=== PATIENT | male | born 1925 | race Caucasian/White ===

== ENCOUNTER 2016-02-24 15:49 | Emergency (ER) | payer OTHER ==
[2016-02-24 16:03] VITALS: TEMP 98.2; BMI 21.6
--- NOTE | 2016-02-24 16:16 | PDOC ---
History of Present Illness - History of Present Illness Initial Comments: 02/24/16 16:43 Patient is an 89 year old male with significant medical hx of pacemaker placement, myasthenia gravis, and HTN who is presenting to the ED today s/p fall with left anterior rib pain that occurred four hours prior to arrival. The patient slipped at home, turned, and fell on his left side. He complains of pleuritic pain that occurs with deep inspiration and left shoulder discomfort when he raises his left arm over his head. Denies hip pain, head trauma, or loss of consciousness. <Claudia Castillo - Last Filed: 02/24/16 17:55> <Taylor Kumar - Last Filed: 02/24/16 18:23> <Andres Colon - Last Filed: 02/28/16 10:09> - General Chief Complaint: Injury Stated Complaint: SOB, CHEST PAIN Time Seen by Provider: 02/24/16 16:11 Past History <Claudia Castillo - Last Filed: 02/24/16 17:55> <Taylor Kumar - Last Filed: 02/24/16 18:23> - Past Medical History Cancer: Yes (multiple myeloma) Cardiac Disorders: Yes (AICD) HTN: Yes - Surgical History Appendectomy: Yes - Immunization History TDAP Vaccination: Yes (2016) - Psycho/Social/Smoking Cessation Hx Suicidal Ideation: No Smoking History: Former smoker Have you smoked in the past 12 months: No If you are a former smoker, when did you quit?: 29 YRS AGO Information on smoking cessation initiated: No Hx Alcohol Use: No Drug/Substance Use Hx: No Substance Use Type: None <Andres Colon - Last Filed: 02/28/16 10:09> - Past Medical History Allergies/Adverse Reactions: Allergies Allergy/AdvReac Type Severity Reaction Status Date / Time escitalopram oxalate AdvReac Intermediate Does not Verified 02/24/16 15:53 [From Lexapro] like the way he feels sertraline AdvReac Intermediate Does not Verified 02/24/16 15:[address] he feels Home Medications: Ambulatory Orders Alprazolam [Alprazolam ER] 0.5 mg PO TID PRN 09/13/15 Metoprolol Tartrate 12.5 mg PO BID 09/13/15 Mycophenolate Mofetil [Cellcept -] 500 mg PO BID 09/13/15 Ezetimibe/Simvastatin [Vytorin 10-20 mg Tablet] 1 tab PO DAILY 02/24/16 Gabapentin 100 mg PO DAILY 02/24/16 Irbesartan 150 mg PO DAILY 02/24/16 Trauma Specific PMHX - Complaint Specific PMHX Arthritis: Yes <Andres Colon - Last Filed: 02/28/16 10:09> Review of Systems - Review of Systems Comments:: 02/24/16 16:44 CONSTITUTIONAL: Absent: fever, chills, diaphoresis, generalized weakness, malaise, loss of appetite HEENT: Absent: rhinorrhea, nasal congestion, throat pain, throat swelling, difficulty swallowing, mouth swelling, ear pain, eye pain, visual changes CARDIOVASCULAR: Present: pleuritic chest pain Absent: syncope, palpitations, irregular heart rate, lightheadedness, peripheral edema RESPIRATORY: Absent: cough, shortness of breath, dyspnea with exertion, orthopnea, wheezing, stridor, hemoptysis GASTROINTESTINAL: Absent: abdominal pain, abdominal distension, nausea, vomiting, diarrhea, constipation, melena, hematochezia GENITOURINARY: Absent: dysuria, frequency, urgency, hesitancy, hematuria, flank pain, genital pain MUSCULOSKELETAL: Present: anterior rib pain, left shoulder pain Absent: myalgia, arthralgia, joint swelling SKIN: Absent: rash, itching, pallor HEMATOLOGIC/IMMUNOLOGIC: Absent: easy bleeding, easy bruising, lymphadenopathy, frequent infections ENDOCRINE: Absent: unexplained weight gain, unexplained weight loss, heat intolerance, cold intolerance NEUROLOGIC: Absent: headache, focal weakness or paresthesia, dizziness, unsteady gait, seizure, mental status changes, bladder or bowel incontinence. PSYCHIATRIC: Absent: anxiety, depression, suicidal or homicidal ideation, hallucinations <Claudia Castillo - Last Filed: 02/24/16 17:55> *Physical Exam - Vital Signs Last Vital Signs Temp Pulse Resp BP Pulse Ox 98.2 F 61 18 143/87 98 02/24/16 15:55 02/24/16 15:55 02/24/16 15:55 02/24/16 15:55 02/24/16 15:55 - Physical Exam Comments: 02/24/16 16:51 GENERAL: Well developed, well nourished. Awake and alert. No acute distress. HEENT: Normocephalic, atraumatic. PERRLA, EOMI. No conjunctival pallor. Sclera are non- icteric. Moist mucous membranes. Oropharynx is clear. NECK: Supple. Full ROM. No JVD. Carotid pulses 2+ and symmetric, without bruits. No thyromegaly. No lymphadenopathy. CARDIOVASCULAR: Regular rate and rhythm. No murmurs, rubs, or gallops. Distal pulses are 2+ and symmetric. PULMONARY: No evidence of respiratory distress. Lungs clear to auscultation bilaterally. No wheezing, rales or rhonchi. ABDOMINAL: Soft. Non-tender. Non-distended. No rebound or guarding. No organomegaly. Normoactive bowel sounds. MUSCULOSKELETAL: Left anterior rib cage tenderness under the left breast. Normal range of motion at all joints. No bony deformities. No CVA tenderness. EXTREMITIES: 3+ pitting edema lower extremities bilaterally. No cyanosis. No clubbing. No calf tenderness. SKIN: Warm and dry. Normal capillary refill. No rashes. No jaundice. NEUROLOGICAL: Alert, awake, appropriate. Cranial nerves 2-12 intact. Normal speech. PSYCHIATRIC: Cooperative. Good eye contact. Appropriate mood and affect. <Claudia Castillo - Last Filed: 02/24/16 17:55> - Vital Signs Last Vital Signs Temp Pulse Resp BP Pulse Ox 98.2 F 61 18 143/87 98 02/24/16 15:55 02/24/16 15:55 02/24/16 15:55 02/24/16 15:55 02/24/16 15:55 <Taylor Kumar - Last Filed: 02/24/16 18:23> - Vital Signs Last Vital Signs Temp Pulse Resp BP Pulse Ox 98.2 F 61 18 143/87 98 02/24/16 15:55 02/24/16 15:55 02/24/16 15:55 02/24/16 15:55 02/24/16 15:55 <Andres Colon - Last Filed: 02/28/16 10:09> ED Treatment Course - RADIOLOGY Radiograph Interpretation: 02/24/16 17:55 Left Shoulder X-Ray Impression: No fracture or dislocation seen. Chest X-Ray Impression: Bilateral increased interstitial lung markings without evidence of acute lung disease. No pneumothorax or pleural effusion is identified. Left Rib X-Ray Impression: Minimally displaced fracture in anterior arch of the left seventh rib. Reported by: Greg Gomez MD <Claudia Castillo - Last Filed: 02/24/16 17:55> - Medications Given in the ED: ED Medications Discontinued Medications Generic Name Dose Route Start Last Admin Trade Name Freq PRN Reason Stop Dose Admin Acetaminophen 650 mg 02/24/16 17:12 02/24/16 16:25 Tylenol - PO 02/24/16 17:13 650 mg ONCE ONE Administration <Taylor Kumar - Last Filed: 02/24/16 18:23> Medical Decision Making - Medical Decision Making 02/24/16 18:22 89-year-old male slipped at home and fell on his left side and came in because of pleuritic chest pain. He fell 3 or 4 hours prior to arrival. He did not hit his head. He denies being on any blood thinners. The patient is alert and conversant. He presents with his and also an aide. They came because he was concerned that his pacemaker might have been broken during the fall -No shoulder injury seen on radiograph. Patient is able to fully extend his left arm -xray shows a minimally displaced seventh left anterior rib central processing tech is reviewing how to use the incentive spirometer properly with the patient at this time <Taylor Kumar - Last Filed: 02/24/16 18:23> - Medical Decision Making 02/28/16 10:09 i did not evaluate this patient. <Andres Colon - Last Filed: 02/28/16 10:09> *DC/Admit/Observation/Transfer - Attestations Scribe Attestion: 02/24/16 16:53 Documentation prepared by Claudia Castillo, acting as bilingual medical assistant for Taylor Kumar MD. <Claudia Castillo - Last Filed: 02/24/16 17:55> <Taylor Kumar - Last Filed: 02/24/16 18:23> <Andres Colon - Last Filed: 02/28/16 10:09> Diagnosis at time of Disposition: Closed rib fracture Qualifiers: Encounter type: initial encounter Rib fracture type: single rib Laterality: left Qualified Code(s): S22.32XA - Fracture of one rib, left side, initial encounter for closed fracture - Discharge Dispostion Disposition: HOME Condition at time of disposition: Stable - Referrals Referrals: Damion Rose MD [Primary Care Provider] - - Patient Instructions Printed Discharge Instructions: DI for Rib Fracture, How to Use an Incentive Spirometer Additional Instructions: Please follow-up with your primary care physician You have a minimally displaced left anterior seventh rib fracture Ease use your incentive spirometer as directed You may take Tylenol for pain Return to the emergency department if you have any increased difficulty breathing
[2016-02-24] MEDS ORDERED: ACETAMINOPHEN 325 MG TABLET (FP) ONE (16:18)
[2016-02-24] MEDS ORDERED: ACETAMINOPHEN 325 MG TABLET (FP) PO ONE (17:12)
[2016-02-24 18:50] VITALS: BP 116/57; PULSE 60
--- NOTE | 2016-02-26 11:11 | EKG ---
Test Reason : Blood Pressure : / mmHG Vent. Rate : 062 BPM Atrial Rate : 163 BPM P-R Int : 000 ms QRS Dur : 122 ms QT Int : 446 ms P-R-T Axes : 000 -16 066 degrees QTc Int : 452 ms POOR DATA QUALITY, INTERPRETATION MAY BE ADVERSELY AFFECTED Atrial-paced rhythm INFERIOR INFARCT , AGE UNDETERMINED ABNORMAL ECG Confirmed by NONA DOUGLASS MD ([id number]) on 02/26/2016 11:11:19 AM Referred By: Confirmed By:NONA DOUGLASS MD
== END 2016-02-24 18:50 | disposition home or self-care (01) ==
LOC: JER 15:49
DX: S22.32XA Fracture of one rib, left side, initial encounter for closed fracture (principal); I10 Essential (primary) hypertension; G70.00 Myasthenia gravis without (acute) exacerbation; Z95.810 Presence of automatic (implantable) cardiac defibrillator; W01.0XXA Fall on same level from slipping, tripping and stumbling without subsequent striking against object, initial encounter; Y93.89 Activity, other specified; Y92.038 Other place in apartment as the place of occurrence of the external cause
CPT/HCPCS: 71010-TC; 71101-TC; 73030-TC-LT; 93005; 93010; 99281-25

== ENCOUNTER 2016-11-28 03:19 | Emergency (ER) | payer OTHER ==
[2016-11-28] MEDS ORDERED: KETOROLAC TROMETHAMINE 60 MG/2 ML VIAL IM ONE (03:51)
--- NOTE | 2016-11-28 03:52 | PDOC ---
History of Present Illness - General History Source: Patient Exam Limitations: No Limitations - History of Present Illness Initial Comments: 11/28/16 03:58 The patient is a 89 year old male with a significant past medical history of pacemaker placement, myasthenia gravis,HLD and HTN who presents of the ED, via EMS, with back pain since earlier today. The patient reports he was crafting with macrame when he had a sudden onset of right sided back pain around 1:30 am today. Patient reports sharp right sided back pain secondary to movement. He states the pain start in his right neck, radiates to his right sided chest, right sided back, all the way down to his right knee. Denies recent heavy lifting or falls. Denies fevers or chills. Denies shortness of breath. Denies nausea, vomiting, or diarrhea. Denies any other symptoms. <Tonny Quezada - Last Filed: 11/28/16 03:58> <Zayda Haji - Last Filed: 11/28/16 20:23> - General Chief Complaint: Chest Pain Stated Complaint: ACUTE BACK PAIN Time Seen by Provider: 11/28/16 03:26 Past History <Tonny Quezada - Last Filed: 11/28/16 03:58> - Past Medical History Cancer: Yes (multiple myeloma) Cardiac Disorders: Yes (AICD, AF) HTN: Yes - Surgical History Appendectomy: Yes - Immunization History TDAP Vaccination: Yes (2016) - Suicide/Smoking/Psychosocial Hx Smoking History: Never smoked Have you smoked in the past 12 months: No If you are a former smoker, when did you quit?: 29 YRS AGO Information on smoking cessation initiated: No Hx Alcohol Use: No Drug/Substance Use Hx: No Substance Use Type: None <Zayda Haji - Last Filed: 11/28/16 20:23> - Past Medical History Allergies/Adverse Reactions: Allergies Allergy/AdvReac Type Severity Reaction Status Date / Time escitalopram oxalate AdvReac Intermediate Does not Verified 11/28/16 03:48 [From Lexapro] like the way he feels sertraline AdvReac Intermediate Does not Verified 11/28/16 03:[address] he feels Home Medications: Ambulatory Orders Metoprolol Tartrate 12.5 mg PO BID 09/13/15 Mycophenolate Mofetil [Cellcept -] 500 mg PO BID 09/13/15 Gabapentin 100 mg PO DAILY 02/24/16 Irbesartan 150 mg PO DAILY 02/24/16 Ibuprofen 400 mg PO Q8H PRN #12 tablet 11/28/16 Methocarbamol [Robaxin -] 500 mg PO BID PRN #10 tablet 11/28/16 Review of Systems - Review of Systems Able to Perform ROS?: Yes Comments:: 11/28/16 03:59 CONSTITUTIONAL: No reported: Fever, Chills, Diaphoresis, Generalized Weakness, Malaise, Loss of Appetite HEENT: No reported: Rhinorrhea, Nasal Congestion, Throat Pain, Throat Swelling, Difficulty Swallowing, Mouth Swelling, Ear Pain, Eye Pain, Visual Changes CARDIOVASCULAR: No reported: Chest Pain, Syncope, Palpitations, Irregular Heart Rate, Lightheadedness, Peripheral Edema RESPIRATORY: No reported: Cough, Shortness of Breath, SOB with Exertion, Orthopnea, Wheezing , Stridor, Hemoptysis GASTROINTESTINAL: No reported: Abdominal pain, Abdominal Distension, Nausea, Vomiting, Diarrhea, Constipation, Melena, Hematochezia GENITOURINARY: No reported: Dysuria, Frequency, Urgency, Hesitancy, Flank Pain, Genital Pain MUSCULOSKELETAL: + radiating back pain No reported: Joint Swelling SKIN: No reported: Rash, Itching, Pallor HEMEATOLOGIC/IMMUNOLOGIC: No reported: Easy Bleeding, Easy Bruising, Lymphadenopathy, Frequent infections ENDOCRINE: No reported: Unexplained Weight Gain, Unexplained Weight Loss, Heat Intolerance , Cold Intolerance NEUROLOGIC: No reported: Headache, Focal Weakness, Paresthesias, Vertigo, Lightheadedness, Unsteady Gait, Seizure, Mental Status Changes, Incontinence PSYCHIATRIC: No reported: Anxiety, Depression All Other Systems: Reviewed and Negative <Tonny Quezada - Last Filed: 11/28/16 03:58> *Physical Exam - Vital Signs Last Vital Signs Temp Pulse Resp BP Pulse Ox 98.7 F 75 20 150/87 100 11/28/16 03:48 11/28/16 03:48 11/28/16 03:48 11/28/16 03:48 11/28/16 03:48 - Physical Exam Comments: 11/28/16 03:59 GENERAL: Well developed, well nourished. Awake and alert. No acute distress. HEENT: Normocephalic, atraumatic. PERRLA, EOMI. No conjunctival pallor. Sclera are non- icteric. Moist mucous membranes. Oropharynx is clear. NECK: Supple. Full ROM. No JVD. Carotid pulses 2+ and symmetric, without bruits. No thyromegaly. No lymphadenopathy. CARDIOVASCULAR: + Pacemaker on left upper chest Regular rate and rhythm. No murmurs, rubs, or gallops. Distal pulses are 2+ and symmetric. PULMONARY: No evidence of respiratory distress. Lungs clear to auscultation bilaterally. No wheezing, rales or rhonchi. ABDOMINAL: Soft. Non-tender. Non-distended. No rebound or guarding. No organomegaly. Normoactive bowel sounds. MUSCULOSKELETAL + Exquisite tenderness on lateral aspect on right side chest around T6,T7,T8. Normal range of motion at all joints. No bony deformities EXTREMITIES: + Valgus deformity of his bilateral toes No cyanosis. No edema. No calf tenderness. SKIN: + Warts on right hand on 2nd, 3rd, and 4th digit. Warm and dry. Normal capillary refill. No rashes. No jaundice. NEUROLOGICAL: Alert, awake, appropriate. Cranial nerves 2-12 intact. No deficits to light touch and temperature in face, upper extremities and lower extremities. No motor deficits in the in face, upper extremities and lower extremities. Normoreflexic in the upper and lower extremities. Normal speech. Toes are down- going bilaterally. Gait is normal without ataxia. PSYCHIATRIC: Cooperative. Good eye contact. Appropriate mood and affect. <Tonny Quezada - Last Filed: 11/28/16 03:58> - Vital Signs Last Vital Signs Temp Pulse Resp BP Pulse Ox 98.7 F 75 20 150/87 100 11/28/16 03:48 11/28/16 03:48 11/28/16 03:48 11/28/16 03:48 11/28/16 03:48 <Zayda Haji - Last Filed: 11/28/16 20:23> ED Treatment Course - LABORATORY CBC & Chemistry Diagram: 11/28/16 06:00 11/28/16 06:00 <Zayda Haji - Last Filed: 11/28/16 20:23> Medical Decision Making - Medical Decision Making 11/28/16 06:27 Pt comes with tenderness to the right side of his chest. He woke up in the middle of the night and told his to call 911 as he was in such pain. Pt states that he has not had this in the past. States that he was at home yesterday. Cannot recall straining himself or injuring self. He has no fever and no SOB. Labs are pending. CXR demonstrates no broken ribs, as far as I can appreciate. Pt has moderate scoliosis which can be the cause of his muscle pains. 11/28/16 20:23 Labs and reevaluation will be signed out to the day team. <Zayda Haji - Last Filed: 11/28/16 20:23> *DC/Admit/Observation/Transfer - Attestations Scribe Attestion: 11/28/16 03:59 Documentation prepared by Tonny Quezada, acting as medical assistant for aZyda Haji MD <Tonny Quezada - Last Filed: 11/28/16 03:58> <Zayda Haji - Last Filed: 11/28/16 20:23> Diagnosis at time of Disposition: Muscle spasm - Discharge Dispostion Disposition: HOME Condition at time of disposition: Improved - Prescriptions Prescriptions: Ibuprofen 400 mg PO Q8H PRN #12 tablet PRN Reason: Back Pain Methocarbamol [Robaxin -] 500 mg PO BID PRN #10 tablet PRN Reason: Back Spasm - Referrals Referrals: Steffen Balderas MD [Staff Physician] - - Patient Instructions Printed Discharge Instructions: DI for Back Spasm Additional Instructions: Take the medications as prescribed. The muscle relaxant may cause drowsiness, so please be careful while you take this medication. Follow up with Dr. Balderas this week.
[2016-11-28] MEDS ORDERED: KETOROLAC TROMETHAMINE 60 MG/2 ML VIAL ONE (03:58)
[2016-11-28 04:23] VITALS: BMI 26.6
[2016-11-28] MEDS ORDERED: METHOCARBAMOL 500 MG TABLET PO ONE (06:12)
[2016-11-28 06:51] LABS: BASOPHIL 0.6 % (0-2.0); EOSINOPHIL 0.6 % (0-4.5); MCH 29.8 pg (25.7-33.7); MCHC 32.8 g/dl (32.0-35.9); MEAN CELL VOLUME 90.8 fl (80-96); MEAN PLT VOLUME 8.5 fl (7.5-11.1); NEUTROPHILS 74.6 % (42.8-82.8); PLATELET COUNT 131 K/MM3 (134-434); RDW 15.5 % (11.9-15.9); WHITE BLOOD COUNT 6.7 K/mm3 (4.0-10.0)
[2016-11-28] MEDS ORDERED: METHOCARBAMOL 500 MG TABLET ONE (06:52)
[2016-11-28 07:18] LABS: ALBUMIN 3.1 g/dl (3.4-5.0); ALK PHOS 62 U/L (45-117); ANION GAP 8 (8-16); BILIRUBIN,TOTAL 0.7 mg/dL (0.2-1.0); CALCIUM 8.3 mg/dL (8.5-10.1); CO2 26 mmol/L (21-32); CREATININE 0.7 mg/dL (0.7-1.3); GLUCOSE,RANDOM 81 mg/dL (74-106); SGOT/AST 27 U/L (15-37); SGPT/ALT 34 U/L (12-78); TOT PROT 6.6 g/dl (6.4-8.2)
--- NOTE | 2016-11-28 08:42 | PDOC ---
*Physical Exam - Vital Signs Last Vital Signs Temp Pulse Resp BP Pulse Ox 98.7 F 75 20 150/87 100 11/28/16 03:48 11/28/16 03:48 11/28/16 03:48 11/28/16 03:48 11/28/16 03:48 <Michael Anaya - Last Filed: 11/28/16 08:45> - Vital Signs Last Vital Signs Temp Pulse Resp BP Pulse Ox 98.7 F 75 20 150/87 100 11/28/16 03:48 11/28/16 03:48 11/28/16 03:48 11/28/16 03:48 11/28/16 03:48 <Michael Leo - Last Filed: 11/28/16 08:46> ED Treatment Course - LABORATORY CBC & Chemistry Diagram: 11/28/16 06:00 11/28/16 06:00 - ADDITIONAL ORDERS Additional order review: Laboratory Results 11/28/16 06:00 Sodium 138 Potassium 3.9 Chloride 104 Carbon Dioxide 26 Anion Gap 8 BUN 14 Creatinine 0.7 D Creat Clearance w eGFR > 60 Random Glucose 81 D Calcium 8.3 L Total Bilirubin 0.7 AST 27 D ALT 34 D Alkaline Phosphatase 62 D B-Natriuretic Peptide 1422.73 H Total Protein 6.6 Albumin 3.1 L 11/28/16 06:00 RBC 4.08 MCV 90.8 MCHC 32.8 RDW 15.5 MPV 8.5 Neutrophils % 74.6 Lymphocytes % 14.5 D Monocytes % 9.7 Eosinophils % 0.6 Basophils % 0.6 - Medications Given in the ED: ED Medications Discontinued Medications Generic Name Dose Route Start Last Admin Trade Name Gabriela PRN Reason Stop Dose Admin Ketorolac Tromethamine 60 mg 11/28/16 03:51 11/28/16 04:05 Toradol Injection - IM 11/28/16 03:52 60 mg ONCE ONE Administration Methocarbamol 1,000 mg 11/28/16 06:12 11/28/16 06:53 Robaxin - PO 11/28/16 06:13 1,000 mg ONCE ONE Administration Oxycodone/Acetaminophen 2 combo 11/28/16 03:51 11/28/16 04:04 Percocet 5/325 - PO 11/28/16 03:52 2 combo ONCE ONE Administration <Michael Anaya - Last Filed: 11/28/16 08:45> - LABORATORY CBC & Chemistry Diagram: 11/28/16 06:00 11/28/16 06:00 - ADDITIONAL ORDERS Additional order review: Laboratory Results 11/28/16 06:00 Sodium 138 Potassium 3.9 Chloride 104 Carbon Dioxide 26 Anion Gap 8 BUN 14 Creatinine 0.7 D Creat Clearance w eGFR > 60 Random Glucose 81 D Calcium 8.3 L Total Bilirubin 0.7 AST 27 D ALT 34 D Alkaline Phosphatase 62 D B-Natriuretic Peptide 1422.73 H Total Protein 6.6 Albumin 3.1 L 11/28/16 06:00 RBC 4.08 MCV 90.8 MCHC 32.8 RDW 15.5 MPV 8.5 Neutrophils % 74.6 Lymphocytes % 14.5 D Monocytes % 9.7 Eosinophils % 0.6 Basophils % 0.6 - Medications Given in the ED: ED Medications Discontinued Medications Generic Name Dose Route Start Last Admin Trade Name Freq PRN Reason Stop Dose Admin Ketorolac Tromethamine 60 mg 11/28/16 03:51 11/28/16 04:05 Toradol Injection - IM 11/28/16 03:52 60 mg ONCE ONE Administration Methocarbamol 1,000 mg 11/28/16 06:12 11/28/16 06:53 Robaxin - PO 11/28/16 06:13 1,000 mg ONCE ONE Administration Oxycodone/Acetaminophen 2 combo 11/28/16 03:51 11/28/16 04:04 Percocet 5/325 - PO 11/28/16 03:52 2 combo ONCE ONE Administration - Consult/PCP Time Called: 08:10 Case discussed with personal care physician: Vicente Lofton <Michael Leo - Last Filed: 11/28/16 08:46> Medical Decision Making - Medical Decision Making 11/28/16 08:37 Sign-out received from outgoing Emergency Physician Dr. Haji Pt interviewed and examined Ancillary studies reviewed Case discussed in detail with oncoming Emergency Physician including history, physical exam and ancillary studies. Vital Signs Temp Pulse Resp BP Pulse Ox 98.7 F 75 20 150/87 100 11/28/16 03:48 11/28/16 03:48 11/28/16 03:48 11/28/16 03:48 11/28/16 03:48 89 year old male c/ cardiac history and pacemaker presents with back pain. After talking with the patient and examining the patient myself, the patient reports pain worsened with movements and back movements. Palpation of the right mid back (NOT CVA tenderness) reproduces pain. The patient reported that during the night, he was in terrible pain and felt like muscle spasm. Once given the muscle relaxant and NSAIDS, pain improved drastically. The patient denies SOB or diaphoresis. He is now ambulatory and in complete relief and would like to go home. His ECG here shows atrial paced rhythm with Q wave III, no std/larry, QTC 476 msec , unchanged from prior. Labs reviewed. Though BNP elevated, I do NOT suspect clinically that he has CHF at this time. I had discussed the case with Dr. Lofton and agrees with my plan of discharging patient with follow up with Dr. 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 This is unlikely to be ACS. The patient feels comfortable and would like to go home. I discussed the physical exam findings, ancillary test results and final diagnoses with the patient. I answered all of the patient's questions. The patient was satisfied with the care received and felt comfortable with the discharge plan and treatment plan. The patient will call their primary care physician within 24 hours to arrange follow-up and will return to the Emergency Department with any new, persistant or worsening symptoms. <Michael Anaya - Last Filed: 11/28/16 08:45> *DC/Admit/Observation/Transfer - Discharge Dispostion Admit: No <Michael Anaya - Last Filed: 11/28/16 08:45> <Michael Leo - Last Filed: 11/28/16 08:46> Diagnosis at time of Disposition: Muscle spasm - Discharge Dispostion Disposition: HOME Condition at time of disposition: Improved - Prescriptions Prescriptions: Ibuprofen 400 mg PO Q8H PRN #12 tablet PRN Reason: Back Pain Methocarbamol [Robaxin -] 500 mg PO BID PRN #10 tablet PRN Reason: Back Spasm - Referrals Referrals: Steffen Balderas MD [Staff Physician] - - Patient Instructions Printed Discharge Instructions: DI for Back Spasm Additional Instructions: Take the medications as prescribed. The muscle relaxant may cause drowsiness, so please be careful while you take this medication. Follow up with Dr. Balderas this week.
[2016-11-28 10:13] VITALS: BP 142/84; PULSE 72; TEMP 97.8
--- NOTE | 2016-11-28 11:00 | EKG ---
Test Reason : Blood Pressure : / mmHG Vent. Rate : 065 BPM Atrial Rate : 065 BPM P-R Int : 246 ms QRS Dur : 132 ms QT Int : 458 ms P-R-T Axes : -08 011 025 degrees QTc Int : 476 ms Atrial-paced rhythm with prolonged AV conduction NON-SPECIFIC INTRA-VENTRICULAR CONDUCTION BLOCK INFERIOR INFARCT (CITED ON OR BEFORE 13-SEP-2015) POSSIBLE ANTEROLATERAL INFARCT , AGE UNDETERMINED ABNORMAL ECG WHEN COMPARED WITH ECG OF 24-FEB-2016 15:57, NONSPECIFIC T WAVE ABNORMALITY NOW EVIDENT IN INFERIOR LEADS Confirmed by TR HERNANDEZ MD ([id number]) on 11/28/2016 11:00:38 AM Referred By: Confirmed By:TR HERNANDEZ MD
[2016-11-28 11:58] LABS: CPK 52 IU/L (39-308); TROPONIN I < 0.02 ng/ml (0.00-0.05)
== END 2016-11-28 09:30 | disposition home or self-care (01) ==
LOC: JER 03:19
PROC: 3E0233Z Introduction of Anti-inflammatory into Muscle, Percutaneous Approach (ICD-10-PCS; principal; 2016-11-28)
DX: M62.830 Muscle spasm of back (principal); R07.89 Other chest pain; I10 Essential (primary) hypertension; I48.91 Unspecified atrial fibrillation; G70.00 Myasthenia gravis without (acute) exacerbation; Z95.810 Presence of automatic (implantable) cardiac defibrillator
CPT/HCPCS: 36415; 71101-TC-RT; 80053; 82550; 83880; 84484; 85025; 93005; 93010; 96372; 99282-25